=== PATIENT | male | born 1960 | race Two or more races ===

== ENCOUNTER → 2016-11-06 | Outpatient (REF) | payer OTHER | LOC: M SMT 17:04 | PROVIDERS: ATTEND Nurse Practitioner Women's Health | DX: R39.15 Urgency of urination (principal) ==

== ENCOUNTER → 2017-04-16 | Outpatient (REF) | payer OTHER ==
[2017-04-16 22:58] LABS: MICROSCOPIC INDICATED? MAN NO (NO)
== END ==
LOC: M LAB REF 16:26
PROVIDERS: ATTEND Physician Assistant
DX: M54.5 Low back pain (principal)

== ENCOUNTER 2017-05-23 11:24 | Emergency (ER) | payer OTHER ==
[~2017-05-23] VITALS: Ht 167.6 cm; Wt 95.5 kg
[2017-05-23] MEDS ORDERED: TRAM50TA2 (12:03)
[2017-05-23] MEDS ORDERED: LOSA50TA20 (12:03)
[2017-05-23] MEDS ORDERED: PRAV80TA2 (12:03)
[2017-05-23] MEDS ORDERED: OMEP20CA3 (12:03)
[2017-05-23] MEDS ORDERED: MEDR4PAK PO (13:07)
[2017-05-23] MEDS ORDERED: KETOROLAC 60 MG/2 ML VIAL (J1885) IM ONE (13:15)
[2017-05-23 13:50] VITALS: BP 140/78
== END 2017-05-23 13:51 | disposition home or self-care (01) ==
LOC: M ED 11:24
DX: M54.5 Low back pain (principal); G47.30 Sleep apnea, unspecified; Z98.1 Arthrodesis status; Z79.899 Other long term (current) drug therapy
CPT/HCPCS: 96372; 99283; J1885; J3360

== ENCOUNTER 2023-02-22 08:14 | Day surgery (SDC) | payer OTHER ==
[~2023-02-22] VITALS: Ht 167.6 cm; Wt 99.2 kg
[~2023-02-22 08:14] MED LIST: ATOR80TA59 PO; JARD1TAB PO; LOSA50TA28 PO; MEDR4PAK PO; NS 1,000 ML IV ONE; OMEP-173 PO; OMEP1CAP73; PRAV80TA2; TRAM50TA2 PO; propofoL 200 MG/20 ML VIAL As Ordered ONE
[2023-02-22] MEDS ORDERED: propofoL 200 MG/20 ML VIAL As Ordered ONE (09:07)
[2023-02-22 09:25] VITALS: TEMP 97.9
[2023-02-22 09:38] VITALS: BP 134/79; O2SAT 97
== END 2023-02-22 09:38 | disposition home or self-care (01) ==
LOC: M OPP 08:14
PROVIDERS: ATTEND Internal Medicine Gastroenterology
DX: Z12.11 Encounter for screening for malignant neoplasm of colon (principal); D12.5 Benign neoplasm of sigmoid colon; K63.5 Polyp of colon; K62.6 Ulcer of anus and rectum; K64.8 Other hemorrhoids; K57.30 Diverticulosis of large intestine without perforation or abscess without bleeding; E11.9 Type 2 diabetes mellitus without complications; G47.33 Obstructive sleep apnea (adult) (pediatric); Z99.89 Dependence on other enabling machines and devices; Z79.02 Long term (current) use of antithrombotics/antiplatelets; Z79.84 Long term (current) use of oral hypoglycemic drugs; Z79.891 Long term (current) use of opiate analgesic; Z79.899 Other long term (current) drug therapy

== ENCOUNTER 2023-04-29 09:49 | Emergency (ER) | payer OTHER ==
[~2023-04-29] VITALS: Ht 167.6 cm; Wt 100.4 kg
[~2023-04-29 09:49] MED LIST changes: -NS 1,000 ML IV ONE; -propofoL 200 MG/20 ML VIAL As Ordered ONE
[2023-04-29] MEDS ORDERED: SILD100T (09:57)
[2023-04-29] MEDS ORDERED: CYCLOBENZAPRINE 10MG TABLET PO ONE (14:00)
[2023-04-29] MEDS ORDERED: KETOROLAC 60MG 2ML VIAL IM ONE (14:00)
[2023-04-29] MEDS ORDERED: KETO10TAB PO (15:38)
[2023-04-29] MEDS ORDERED: CYCL-707 PO (15:38)
[2023-04-29 15:39] VITALS: BP 155/77; TEMP 97.6; O2SAT 97
== END 2023-04-29 15:42 | disposition home or self-care (01) ==
LOC: M ED 09:49
DX: S46.811A Strain of other muscles, fascia and tendons at shoulder and upper arm level, right arm, initial encounter (principal); I10 Essential (primary) hypertension; K21.9 Gastro-esophageal reflux disease without esophagitis; F10.10 Alcohol abuse, uncomplicated; M54.50 Low back pain, unspecified; G47.33 Obstructive sleep apnea (adult) (pediatric); Z79.02 Long term (current) use of antithrombotics/antiplatelets; Z79.811 Long term (current) use of aromatase inhibitors; Z79.899 Other long term (current) drug therapy; Y92.9 Unspecified place or not applicable; Y93.9 Activity, unspecified; Y99.9 Unspecified external cause status
CPT/HCPCS: 73030; 96372; 99283; J1885